=== PATIENT | female | born 1985 | race African-American/Black ===

== ENCOUNTER → 2021-04-18 | Outpatient (CLI) | payer BC ==
--- NOTE | 2021-04-18 15:02 | RAD ---
XR THORACIC SPINE 3VIEWS DATE: 04/18/2021 11:06 AM INDICATION: Reason: MID BACK PAIN / Spl. Instructions: / History: COMPARISON: None. FINDINGS: The upper thoracic vertebrae are obscured on the lateral view by overlying soft tissue and osseous st ructures. Bones/Alignment: No evidence of acute compression fracture. No listhesis. Joints: The disc space heights are normal. Miscellaneous: None. IMPRESSION: No osseous abnormalities. Electronically signed by: Mark Landers MD (04/18/2021 3:00 PM) [id number]
--- NOTE | 2021-04-18 15:03 | RAD ---
XR CHEST 2V INDICATION: CHEST/BACK PAIN. NO INJURY . COMPARISON STUDY: None. FINDINGS: Lungs: Normal lung volume. No pulmonary mass or consolidation. The tracheobronchial tree and hilar st ructures are normal. Pleura: No pleural effusion or pneumothorax. Heart and Mediastinum: The cardiomediastinal silhouette is normal. The great vessels of the thorax ar e normal. Bones and Soft Tissues: The bones and soft tissues are within normal limits. IMPRESSION: No acute cardiopulmonary process. Electronically signed by: Mark Landers MD (04/18/2021 3:00 PM) [id number]
== END ==
LOC: RAD 10:48
PROVIDERS: ATTEND Physician Assistant Medical
DX: R07.89 Other chest pain (principal); M54.5 Low back pain
CPT/HCPCS: 71046; 72072